=== PATIENT | female | born 1975 | race Asian ===

== ENCOUNTER 2017-03-06 01:16 | Emergency (ER) | payer MEDICAID ==
[~2017-03-06] VITALS: Ht 177.8 cm; Wt 61.0 kg
[~2017-03-06 01:16] MED LIST: BUSP30TA PO; MULT-516 PO; MV-M1TAB19 PO; NAPR220T77 PO; RISP3TAB3 PO
[2017-03-06 01:17] VITALS: BP 114/85
== END 2017-03-06 03:12 | disposition home or self-care (01) ==
LOC: ED 03:00
DX: J02.8 Acute pharyngitis due to other specified organisms (principal); Z88.8 Allergy status to other drugs, medicaments and biological substances
CPT/HCPCS: 87081; 87147; 87880; 99284

== ENCOUNTER 2017-12-06 18:23 | Inpatient (IN) | payer MEDICAID ==
[~2017-12-06] VITALS: Ht 157.5 cm; Wt 56.6 kg
[2017-12-06 19:18] LABS: MICROSCOPIC NOT IND
[2017-12-06 19:24] LABS: CULTURE INDICATED? NO
[2017-12-06 19:27] LABS: CHLORIDE 85 mmol/L (98-107)
[2017-12-06 19:28] LABS: BASOPHILS # (AUTO) 0.05 x10^3/uL (0-0.1); BASOPHILS % (AUTO) 0 % (0-1); EOSINOPHILS # (AUTO) 0.05 x10^3/uL (0-0.4); EOSINOPHILS % (AUTO) 0 % (1-7); LYMPHOCYTES # (AUTO) 2.14 x10^3/uL (1-3.4); LYMPHOCYTES % (AUTO) 17 % (22-44); MD NO; MEAN CORPUSCULAR HEMOGLOBIN 32.8 pg (27.0-34.8); MEAN CORPUSCULAR HGB CONC 35.3 g/dL (32.4-35.8); MEAN CORPUSCULAR VOLUME 92.7 fL (80-100); MEAN PLATELET VOLUME 6.9 fL (7.4-10.4); MONOCYTES % (AUTO) 7 % (2-9); NEUTROPHILS # (AUTO) 9.22 x10^3/uL (1.8-6.8); NEUTROPHILS % (AUTO) 75 % (42-75); PLATELET COUNT 283 x10^3/uL (130-400); RED BLOOD COUNT 4.59 x10^6/uL (3.82-5.3)
[2017-12-06 19:36] LABS: ALANINE AMINOTRANSFERASE 41 U/L (12-78); ALKALINE PHOSPHATASE 51 U/L (45-117); ANION GAP 14 mmol/L (5-15); BILIRUBIN,TOTAL 1.3 mg/dL (0.2-1.0); CREATININE 0.49 mg/dL (0.55-1.02); TOTAL PROTEIN 7.3 g/dL (6.4-8.2)
[2017-12-06 19:43] LABS: ACETAMINOPHEN < 2 mcg/mL (10-30); SALICYLATE LEVEL < 1.7 mg/dL (2.8-20.0)
[2017-12-06] MEDS ORDERED: SODIUM CHLORIDE 0.9% 1,000 ML IV ONE ×2 (19:51→20:55)
[2017-12-06 20:00] LABS: AMPHETAMINE SCREEN, URINE Negative (Negative); BARBITURATE SCREEN, URINE Negative (Negative); BENZODIAZEPINE SCREEN, URINE Negative (Negative); CANNABINOID SCREEN, URINE Negative (Negative); COCAINE SCREEN, URINE Negative (Negative); METHADONE SCREEN, URINE Negative (Negative); OPIATE SCREEN, URINE Negative (Negative)
[2017-12-06] MEDS ORDERED: NICO-486 TD (20:08)
[2017-12-06] MEDS ORDERED: CARI3CAP PO (20:08)
[2017-12-06] MEDS ORDERED: ACET-76 PO (20:08)
[2017-12-06] MEDS ORDERED: CLON0.5T11 PO (20:08)
[2017-12-06] MEDS ORDERED: FLUT9.9S NAS (20:08)
[2017-12-06] MEDS ORDERED: SODIUM CHLORIDE FLUSH 10ML SYR IVF PRN (21:00)
[2017-12-06] MEDS ORDERED: SODIUM CHLORIDE 0.9% 1,000 ML IV SCH (21:54)
[2017-12-06] MEDS ORDERED: hydrALAzine 20 MG/ML, 1ML IVPush PRN (22:00)
[2017-12-06] MEDS: NICOTINE 7 MG/24 HR PATCH.TD24 TD SCH (22:00)
[2017-12-06] MEDS ORDERED: LABETALOL 5MG/ML, 20ML IVPush PRN (22:00)
[2017-12-06] MEDS ORDERED: GABAPENTIN 300 MG CAPSULE PO PRN (22:00)
[2017-12-06] MEDS ORDERED: DOCUSATE 100 MG CAPSULE PO PRN (22:00)
[2017-12-06] MEDS ORDERED: PROMETHAZINE 25 MG/ML, 1ML IM PRN (22:00)
[2017-12-06] MEDS ORDERED: ONDANSETRON 2MG/ML, 2ML IVPush PRN (22:00)
[2017-12-06] MEDS ORDERED: ONDANSETRON ODT 4 MG PO PRN (22:00)
[2017-12-06] MEDS ORDERED: POLYETHYLENE GLYCOL 17 GM PACKET PO PRN (22:00)
[2017-12-06] MEDS ORDERED: BISACODYL 10 MG SUPP PR PRN (22:00)
[2017-12-06] MEDS ORDERED: HEPARIN 5,000 UNITS/ML, 1ML ONE (22:06)
[2017-12-06] MEDS ORDERED: NICOTINE 7 MG/24 HR PATCH.TD24 ONE (22:15)
[2017-12-06 22:30] LABS: FREE T4 (FREE THYROXINE) 1.5 ng/dL (0.76-1.46); THYROID STIMULATING HORMONE 0.406 mIU/L (0.358-3.740)
[2017-12-06] MEDS ORDERED: RISPERIDONE 3 MG PO SCH (22:30)
[2017-12-06] MEDS ORDERED: BUSPIRONE HCL 30 MG PO SCH (22:30)
[2017-12-06] MEDS: HEPARIN 5,000 UNITS/ML, 1ML SQ SCH (22:34)
[2017-12-06 22:44] LABS: HEMOGLOBIN A1C 5.3 % (4.2-6.3)
[2017-12-07] LABS: ANION GAP 11 mmol/L (5-15); CALCIUM 8.6 mg/dL (8.5-10.1); CHLORIDE 99 mmol/L (98-107); CREATININE 0.45 mg/dL (0.55-1.02)
[2017-12-07] MEDS ORDERED: RISPERIDONE 1 MG TABLET PO SCH (00:48)
[2017-12-07 01:58] VITALS: BP 77/49
[2017-12-07 02:05] VITALS: BP 97/62
[2017-12-07 02:26] LABS: ANION GAP 10 mmol/L (5-15); CALCIUM 8.4 mg/dL (8.5-10.1); CHLORIDE 101 mmol/L (98-107); CREATININE 0.63 mg/dL (0.55-1.02)
[2017-12-07 04:40] LABS: BASOPHILS # (AUTO) 0.03 x10^3/uL (0-0.1); BASOPHILS % (AUTO) 0 % (0-1); EOSINOPHILS # (AUTO) 0.06 x10^3/uL (0-0.4); EOSINOPHILS % (AUTO) 1 % (1-7); LYMPHOCYTES # (AUTO) 2.11 x10^3/uL (1-3.4); LYMPHOCYTES % (AUTO) 26 % (22-44); MD NO; MEAN CORPUSCULAR VOLUME 94.3 fL (80-100); MONOCYTES # (AUTO) 0.79 x10^3/uL (0.2-0.8); MONOCYTES % (AUTO) 10 % (2-9); NEUTROPHILS % (AUTO) 64 % (42-75); PLATELET COUNT 291 x10^3/uL (130-400); RED CELL DISTRIBUTION WIDTH 12.4 % (9.6-15.2)
[2017-12-07 04:52] LABS: ALBUMIN 3.8 g/dL (3.4-5.0); ANION GAP 7 mmol/L (5-15); CALCIUM 8.1 mg/dL (8.5-10.1); CHLORIDE 105 mmol/L (98-107)
[2017-12-07 04:56] LABS: ALANINE AMINOTRANSFERASE 53 U/L (12-78); ALKALINE PHOSPHATASE 51 U/L (45-117); CHOL/HDL RATIO 2.4; CHOLESTEROL, TOTAL 106 mg/dL (140-239); CREATININE 0.57 mg/dL (0.55-1.02); HDL CHOL % 42 % (28-40); HDL CHOLESTEROL (DIRECT) 45 mg/dL (40-60); LDL CHOLESTEROL,CALCULATED 48 mg/dL (54-169); LDL/HDL RATIO 1.1 (0.5-3.0); TOTAL PROTEIN 7.1 g/dL (6.4-8.2); TRIGLYCERIDES 65 mg/dL (50-200); VLDL CHOLESTEROL 13 mg/dL (0-25)
[2017-12-07] MEDS: FLUTICASONE NASAL SPRAY 16GM NAS SCH (09:00)
[2017-12-07 09:43] VITALS: BP 99/70
[2017-12-07] MEDS: HEPARIN 5,000 UNITS/ML, 1ML SQ SCH ×3 (10:13→22:46)
[2017-12-07] MEDS: BUSPIRONE 10 MG TABLET PO SCH ×2 (10:14→21:00)
[2017-12-07 11:47] LABS: ANION GAP 7 mmol/L (5-15); CHLORIDE 105 mmol/L (98-107); CREATININE 0.52 mg/dL (0.55-1.02)
[2017-12-07 12:32] VITALS: BP 103/71
[2017-12-07 13:10] LABS: SODIUM,URINE RANDOM 14 mmol/L
[2017-12-07 13:32] LABS: OSMOLALITY,URINE 50 mOsm/kg (500-850)
[2017-12-07] MEDS: ACETAMINOPHEN 325 MG TABLET PO PRN ×2 (13:32→22:00)
[2017-12-07 15:13] LABS: ANION GAP 8 mmol/L (5-15); CALCIUM 7.7 mg/dL (8.5-10.1); CHLORIDE 105 mmol/L (98-107); CREATININE 0.73 mg/dL (0.55-1.02)
[2017-12-07 18:28] LABS: ANION GAP 7 mmol/L (5-15); CALCIUM 8.3 mg/dL (8.5-10.1); CHLORIDE 104 mmol/L (98-107); CREATININE 0.73 mg/dL (0.55-1.02)
[2017-12-07 19:34] VITALS: BP 98/64
[2017-12-07] MEDS ORDERED: BUSPIRONE 5 MG TABLET ONE ×2 (21:35→21:37)
[2017-12-07] MEDS: NICOTINE 7 MG/24 HR PATCH.TD24 TD SCH (22:00)
[2017-12-07 22:35] LABS: ANION GAP 9 mmol/L (5-15); CALCIUM 8.2 mg/dL (8.5-10.1); CHLORIDE 103 mmol/L (98-107); CREATININE 0.53 mg/dL (0.55-1.02)
[2017-12-08 02:30] VITALS: BP 114/74
[2017-12-08] MEDS: ACETAMINOPHEN 325 MG TABLET PO PRN (03:10)
[2017-12-08 05:25] LABS: BASOPHILS # (AUTO) 0.05 x10^3/uL (0-0.1); BASOPHILS % (AUTO) 1 % (0-1); EOSINOPHILS # (AUTO) 0.14 x10^3/uL (0-0.4); EOSINOPHILS % (AUTO) 2 % (1-7); LYMPHOCYTES # (AUTO) 2.47 x10^3/uL (1-3.4); LYMPHOCYTES % (AUTO) 34 % (22-44); MD NO; MEAN CORPUSCULAR HEMOGLOBIN 32.7 pg (27.0-34.8); MEAN CORPUSCULAR HGB CONC 34.6 g/dL (32.4-35.8); MEAN CORPUSCULAR VOLUME 94.5 fL (80-100); MONOCYTES # (AUTO) 0.66 x10^3/uL (0.2-0.8); MONOCYTES % (AUTO) 9 % (2-9); NEUTROPHILS % (AUTO) 54 % (42-75); PLATELET COUNT 279 x10^3/uL (130-400); RED BLOOD COUNT 4.38 x10^6/uL (3.82-5.3); RED CELL DISTRIBUTION WIDTH 12.6 % (9.6-15.2)
[2017-12-08 05:33] LABS: CHLORIDE 102 mmol/L (98-107)
[2017-12-08 05:39] LABS: ALANINE AMINOTRANSFERASE 93 U/L (12-78); ALBUMIN 3.6 g/dL (3.4-5.0); ALKALINE PHOSPHATASE 47 U/L (45-117); ANION GAP 9 mmol/L (5-15); BILIRUBIN,TOTAL 0.7 mg/dL (0.2-1.0); CREATININE 0.56 mg/dL (0.55-1.02); TOTAL PROTEIN 7.1 g/dL (6.4-8.2)
[2017-12-08] MEDS: HEPARIN 5,000 UNITS/ML, 1ML SQ SCH (06:14)
[2017-12-08] MEDS: FLUTICASONE NASAL SPRAY 16GM NAS SCH (09:00)
[2017-12-08] MEDS: BUSPIRONE 10 MG TABLET PO SCH (09:20)
[2017-12-08 09:50] VITALS: BP 121/73
== END 2017-12-08 15:18 | disposition left against medical advice (07) | DRG 644 ==
LOC: ED 21:00 → EDIP 21:05 → 4WST 12-07 00:46
PROVIDERS: ADMIT Internal Medicine; ATTEND Internal Medicine
DX: E22.2 Syndrome of inappropriate secretion of antidiuretic hormone (principal); G93.40 Encephalopathy, unspecified; R17 Unspecified jaundice; E87.2 Acidosis; F41.9 Anxiety disorder, unspecified; E86.0 Dehydration; E87.6 Hypokalemia; R63.1 Polydipsia; Z53.21 Procedure and treatment not carried out due to patient leaving prior to being seen by health care provider; R74.0 Nonspecific elevation of levels of transaminase and lactic acid dehydrogenase [LDH]; Z88.8 Allergy status to other drugs, medicaments and biological substances; F17.200 Nicotine dependence, unspecified, uncomplicated; Z72.89 Other problems related to lifestyle; F25.9 Schizoaffective disorder, unspecified; Z91.14 Patient's other noncompliance with medication regimen
CPT/HCPCS: 36415; 76700; 80048; 80053; 80061; 80307; 80329; 81003; 82140; 83036; 83735; 83930; 83935; 84300; 84439; 84443; 84703; 85025; 93005; 96372; 99285; G0378; J1644; G0480; J7030

== ENCOUNTER 2020-04-02 08:14 | Emergency (ER) | payer MEDICAID ==
[~2020-04-02] VITALS: Ht 160 cm; Wt 70.9 kg
[~2020-04-02 08:14] MED LIST changes: +ACET-76 PO; +CARI3CAP PO; +CLON-364 PO; +FLUT9.9S NAS; -MV-M1TAB19 PO; +MV-M1TAB74 PO; +NICO-486 TD; -RISP3TAB3 PO; +RISP3TAB58 PO
[2020-04-02 08:17] VITALS: BP 104/58
--- NOTE | 2020-04-02 08:26 | NUR ---
PATIENT WALKED BACK FROM TRIAGE WITH CHIEF C/O RIGHT LEG PAIN. PATIENT REPORTS LOWER LEG HAS BEEN PAINFUL FOR THE LAST 3 DAYS, PATIENT DENIES TRAUMA, PATIENT DENIES NUMBNESS AND TINGLING. CMS INTACT.
--- NOTE | 2020-04-02 08:47 | NUR ---
PATIENT TO IMAGING.
--- NOTE | 2020-04-02 09:37 | NUR ---
TALENT ACQUISITION MANAGER AT BEDSIDE.
--- NOTE | 2020-04-02 09:49 | NUR ---
CONTRACTING SUPPORT SPECIALIST WAS UNABLE TO GET ALL OF THE BLOOD NEEDED FOR BOTH BLOOD TESTS, PATIENT REFUSED TO BE POKED A SECOND TIME. CONTRACTING SUPPORT SPECIALIST WILL RUN CMP.
[2020-04-02 09:57] LABS: ALBUMIN 4.1 g/dL (3.4-5.0); ANION GAP 6 mmol/L (5-15); CALCIUM 9.2 mg/dL (8.5-10.1); CHLORIDE 107 mmol/L (98-107); CREATININE 0.57 mg/dL (0.55-1.02)
--- NOTE | 2020-04-02 10:24 | NUR ---
PATIENT'S DAUGHTER DEION CALLED [phone].
--- NOTE | 2020-04-02 10:46 | NUR ---
Patient given discharge instructions and prescription and they have confirmed that they understand the instructions. All patient belongings gathered by patient. Patient ambulatory with steady gait from ED to private vehicle.
== END 2020-04-02 10:47 | disposition home or self-care (01) ==
LOC: ED 09:56
DX: S86.211A Strain of muscle(s) and tendon(s) of anterior muscle group at lower leg level, right leg, initial encounter (principal); X58.XXXA Exposure to other specified factors, initial encounter; Y93.89 Activity, other specified; Y92.89 Other specified places as the place of occurrence of the external cause; Y99.8 Other external cause status
CPT/HCPCS: 36415; 80048; 82040; 99284

== ENCOUNTER 2020-04-02 21:29 | Emergency (ER) | payer MEDICAID ==
[~2020-04-02] VITALS: Ht 160 cm; Wt 70.6 kg
--- NOTE | 2020-04-02 23:28 | NUR ---
PT WALKED BACK FROM LOBBY AT THIS TIME. STEADY UPON AMBULATION. NO ACUTE DISTRESS NOTED. SKIN WARM AND DRY, APPROPRIATE FOR ETHINICTY. RESP EVEN AND UNLABORED. PT DENIES TAKING MEDICATIONS STATING "THEY GAVE ME SOME, BUT I DON'T TAKE THEM. IT'S A TRAP, YOU KNOW." PT ANSWERING ALL OTHER QUESTIONS APPROPRIATELY. PT ON CONT BP AND O2 MONITORS. CALL LIGHT WITHIN REACH. WILL CONT TO MONITOR PT.
[2020-04-03 00:06] VITALS: BP 117/92
== END 2020-04-03 00:08 | disposition home or self-care (01) ==
LOC: ED 04-03
DX: M79.661 Pain in right lower leg (principal); F17.210 Nicotine dependence, cigarettes, uncomplicated; Z72.9 Problem related to lifestyle, unspecified
CPT/HCPCS: 99281; 99406

== ENCOUNTER 2020-04-05 02:53 | Emergency (ER) | payer MEDICAID ==
[~2020-04-05] VITALS: Ht 160 cm; Wt 55.0 kg
--- NOTE | 2020-04-05 03:11 | NUR ---
Patient BIB ambulance on a legal hold by [employer]. According to [employer], patient was on another person's porch shivering and stating "I live across the street and the other occupants are being held hostage." [employer] reports this is not true and initiated a legal hold for failure to thrive. Patient states she was at her house outside when she was picked up. Denies SI/HI. Patient states she wants to be at the hospital because "I need to rest my feet. There are sores on them." EMS reports patient has a hx of schizophrenia. When patient asked to confirm, she states very quickly, "no, no, no I do not have schizophrenia." Patient is in NAD. Respirations even and unlabored. Patient belongings locked in cabinet and room secured. Sitter outside. Urine collected and sent to lab.
[2020-04-05 03:44] LABS: HCG UR SG 1.025 (1.003-1.030)
[2020-04-05 03:50] LABS: BASOPHILS % (AUTO) 1 % (0-1); EOSINOPHILS % (AUTO) 3 % (1-7); LYMPHOCYTES % (AUTO) 28 % (22-44); MEAN CORPUSCULAR HEMOGLOBIN 32.4 pg (27.0-34.8); MEAN CORPUSCULAR HGB CONC 35.2 g/dL (32.4-35.8); MEAN PLATELET VOLUME 6.8 fL (7.4-10.4); MONOCYTES % (AUTO) 10 % (2-9); NEUTROPHILS % (AUTO) 59 % (42-75); PLATELET COUNT 284 x10^3/uL (130-400); RED BLOOD COUNT 3.94 x10^6/uL (3.82-5.3); RED CELL DISTRIBUTION WIDTH 13.2 % (9.6-15.2)
[2020-04-05 03:54] LABS: AMPHETAMINE SCREEN, URINE Negative (Negative); BARBITURATE SCREEN, URINE Negative (Negative); BENZODIAZEPINE SCREEN, URINE Negative (Negative); CANNABINOID SCREEN, URINE Negative (Negative); COCAINE SCREEN, URINE Negative (Negative); METHADONE SCREEN, URINE Negative (Negative); OPIATE SCREEN, URINE Negative (Negative)
[2020-04-05 04:00] LABS: CHLORIDE 105 mmol/L (98-107)
[2020-04-05 04:02] LABS: MD NO
[2020-04-05 04:09] LABS: ALANINE AMINOTRANSFERASE 43 U/L (12-78); ALKALINE PHOSPHATASE 64 U/L (45-117); ANION GAP 12 mmol/L (5-15); CALCIUM 8.3 mg/dL (8.5-10.1); CREATININE 0.62 mg/dL (0.55-1.02); TOTAL PROTEIN 7.9 g/dL (6.4-8.2)
[2020-04-05 04:14] LABS: SALICYLATE LEVEL < 1.7 mg/dL (2.8-20.0)
--- NOTE | 2020-04-05 04:51 | NUR ---
Pt calm in bed, resting, warm blanket given. Pt awakes to verbal stimuli. Pt free of harm. Sitter outside of room. Will monitor.
--- NOTE | 2020-04-05 06:27 | NUR ---
Pt calm, resting in bed, awakes to verbal. VSS. Pt A&O and in no distress. Will monitor.
--- NOTE | 2020-04-05 07:00 | NUR ---
PT CALMLY SLEEPING ON GURNEY, NAD, COMFORT MEASURES PROVIDED, PT IN SAFE ENVIRONMENT. PT BELONGINGS SAFELY PLACED IN LOCKED LOCKER. ONE GREEN BAG & ONE PATIENT BELONGINGS BAG. SITTER IN VIEW.
--- NOTE | 2020-04-05 08:10 | NUR ---
PT CALMLY LAYING ON GURNEY WITH EYES CLOSED, RESPONDS TO STAFF QUESTIONS, NAD, BREAKFAST TRAY GIVEN, NO OTHER NEEDS AT THIS TIME, PT IN SAFE ENVIRONMENT. SITTER IN VIEW.
--- NOTE | 2020-04-05 09:03 | NUR ---
PT CALMLY SLEEPING ON GURNEY, NAD, BREAKFAST TRAY REMAINS AT BEDSIDE, COMFORT MEASURES PROVIDED, PT IN SAFE ENVIRONMENT. SITTER IN VIEW
--- NOTE | 2020-04-05 10:02 | NUR ---
PT CONTINUES SLEEPING ON GURNEY, NAD, REFUSED BREAKFAST, NO NEEDS AT THIS TIME, PT UNABLE TO PARTICIPATE IN PSYCH CREW LEADER (JESS) & SW (SEEMA) CONSULTS D/T DROWSINESS, PT REMAINS IN SAFE ENVIRONMENT. SITTER IN VIEW
--- NOTE | 2020-04-05 11:05 | NUR ---
PT SLEEPING ON GURNEY CALMLY, NAD WITH EQUAL CHEST RISE/FALL, NO NEEDS AT THIS TIME, PT REMAINS IN SAFE ENVIRONMENT. SITTER IN VIEW
--- NOTE | 2020-04-05 12:07 | NUR ---
BREAK RN: MEAL PROVIDED, PT EATING, SITTER AT DOOR, ROOM REMAINS SECURED
--- NOTE | 2020-04-05 12:24 | NUR ---
BREAK RN: COVID-19 SWAB COMPLETED AND SENT TO LAB, PT TOLERATED WELL
--- NOTE | 2020-04-05 13:47 | NUR ---
Patient given discharge instructions and they have confirmed that they understand the instructions. Patient transferred to U via WC accompanied by transport staff.
== END 2020-04-05 22:16 ==
LOC: ED 08:23
DX: F20.0 Paranoid schizophrenia (principal); Z20.822 Contact with and (suspected) exposure to COVID-19; F17.210 Nicotine dependence, cigarettes, uncomplicated
CPT/HCPCS: 36415; 80053; 80299; 80307; 80320; 80329; 81025; 85025; 87426; 99285; 99406; G0480